=== PATIENT | female | born 1990 | race Caucasian/White ===

== ENCOUNTER 2023-04-26 00:18 | Day surgery (SDC) | payer OTHER, SELFPAY ==
[2023-04-22 10:47] VITALS: BMI 41.2
--- NOTE | 2023-04-22 10:53 | PC.NURSE ---
Report to the Outpatient Waiting Room, entrance under the green pavilion located off [facility], at time 0600 on date 04/26/23. Planned Procedure Time: 0730. Time changes happen often and if your time is changed the preop area will call you the afternoon before. - You and your visitor will be asked to self-screen and do not enter if you have any COVID symptoms. - A mask is optional within the hospital at this time. Patients may have clear liquids (water, carbonated beverages, clear teas, apple juice) until 3 hours prior to surgery with a maximum of 20 ounces. - No food from midnight until time of surgery Take the following medications with a SIP of water the morning of surgery: WELLBUTRIN DO NOT STOP ANY OF YOUR OTHER PRESCRIPTION MEDICATIONS PRIOR TO SURGERY ?EXCEPT THE FOLLOWING Medications to discontinue per physician: N/A Date to take last dose: N/A Please no make-up, nail kinyarwanda, hairspray, perfume, deodorant, or body powder the day of surgery. No jewelry (including any body piercings) or valuables the day of surgery, leave them at home. Please take a shower or bath the night before, or the morning of, surgery with an antibacterial soap. Wear comfortable, loose fitting clothing. - Jewelry must be removed prior to entering the operating room. Rings and piercings that are not removed may be cut off. - The hospital will not accept responsibility for valuables. - Please leave all valuables, including medications, at home the day of surgery. If you are going home after surgery, a licensed city driver must drive you home. - NO public transportation without another adult if you receive anesthesia. - We recommend that an adult stay with you for 24 hours following discharge. - We also recommend that you do not drive, make important decision, drink alcoholic beverages, or take any drugs that were not prescribed by your health care provider for at least 24 hours after your discharge time. Follow any additional instructions given to you from your surgeon. If you or anyone in your household have experienced Covid symptoms in the past week, please notify your surgeon or the nurse liaison at the phone number below for possible testing. Telephone instructions given to PT - GOSIA BUSTOS and asked if any additional questions and then verbalized understanding. Patient advised to call surgeon office or pre surgery nurse liaison [phone] if any additional questions.
[2023-04-26] VITALS (11 sets, daily range): BP systolic 76–120; BP diastolic 47–81; PULSE 57–91; RESP 10–16; TEMP 36.4–37.1; O2SAT 91–100
[2023-04-26] MEDS: LACTATED RINGERS 1,000 ML 30 ML IV CONT ×2 (06:15→08:45)
--- NOTE | 2023-04-26 06:31 | P.PNAN_ITS ---
Anes - Initial Pre Proc Eval Procedure: Operation Date: 04/26/23 07:30 Proposed Procedures p Diagnostic Laparoscopic Bilateral Salpingectomy - Kim Powers DO Date/Time: 04/26/23 06:31 Surgeon: Kim Powers DO Pre Op Diagnosis: desires surgical sterility Patient Data Age: 32 Gender: F Height: 1.63 m Weight: 108.9 kg Allergies Allergy/AdvReac Type Severity Reaction Status Date / Time No Known Allergies Allergy Verified 04/22/23 10:47 Home Medications Medication Instructions Recorded Confirmed Type bupropion HCl 100 mg tablet,12 hr 100 mg PO BID 04/22/23 04/22/23 History sustained-release Patient hx anesthesia problems: none Family hx anesthesia problems: none Results Review: All pre-operative results and documents have been reviewed as part of the pre- operative evaluation. [facility] Past Medical History Medical History (Updated 04/26/23 @ 06:31 by Lalo Chaudhari MD) Morbid obesity Social History Social History Smoking status: Never smoker Alcohol intake: never Substance use: never Substance use type: does not use Living arrangements: with family Spiritual care concerns: No Anes - Eval Final PreProcedure Day of Procedure 04/26/23 06:31 Patient weight: morbidly obese Heart: regular rate and rhythm Lungs: clear to auscultation Airway: Mallampati scale class III and special considerations poor opening Neurological: alert and oriented Last oral intake: >/= 8 hours ASA classification: III Emergent: no Anesthetic plan: proceed Anesthesia type and monitoring: general ETT and standard monitoring Results Review: All pre-operative results and documents have been reviewed as part of the pre- operative evaluation. Informed Consent: The patient's anesthetic plan and its attendant risks and benefits were discussed with the patient/family/POA. Questions were solicited and answers provided to the satisfaction of the patient/family/POA.
[2023-04-26] MEDS: GABAPENTIN 300 MG CAPSULE PO (06:45)
[2023-04-26] MEDS: ACETAMINOPHEN 500 MG TABLET 1000 MG PO (06:45)
--- NOTE | 2023-04-26 07:21 | WPDHPUPDATE1 ---
History and Physical Update Update Date/Time: 04/26/23 07:21 History and Physical has been reviewed, including an updated exam of the patient. There are NO changes in the patient's condition. Risks, benefits, and alternatives have been discussed and questions answered. Patient agrees to proceed with procedure.
--- NOTE | 2023-04-26 07:21 | PM.IMHP ---
H&P: HPI History of Present Illness Date/Time: 04/26/23 07:21 Chief Complaint: I'm here for my tubal Narrative: Leonardo presents desiring permanent sterilization. Review of Systems Review of Systems: All systems reviewed & are unremarkable except as noted in HPI and below PMFSH Past Medical History Medical History (Updated 04/26/23 @ 07:22 by Kim Powers DO) Morbid obesity Social History Social History Smoking status: Never smoker Alcohol intake: never Substance use: never Substance use type: does not use Living arrangements: with family Spiritual care concerns: No Meds Home Medications and Allergies Home Medications Medication Instructions Recorded Confirmed Type bupropion HCl 100 mg tablet,12 hr 100 mg PO BID 04/22/23 04/22/23 History sustained-release Allergies Allergy/AdvReac Type Severity Reaction Status Date / Time No Known Allergies Allergy Verified 04/22/23 10:47 Exam Const: General: comfortable and no acute distress Eyes: General: appearance normal, both eyes and all related structures Resp: Effort & Inspection: normal respiratory effort Auscultation: clear to auscultation bilaterally Cardio: Rate: regular rate Rhythm: regular rhythm GI: GI Palp: Yes Soft to palpation Auscultation: normal bowel sounds Skin: General skin exam: normal color and no rashes or lesions noted Psych: Mental Status: mental status grossly normal Assessment and Plan Assessment and plan (1) Sterilization: Code(s): Z30.2 - Encounter for sterilization Status: Acute Plan Diagnostic laparoscopy, bilateral salpingectomy
[2023-04-26] MEDS: BUPivacaine HCL 0.25% PF 30 ML VIAL INFILTRATE (08:00)
--- NOTE | 2023-04-26 08:15 | W.PM.PROC2 ---
Procedure Note - Detailed Date of Procedure 04/26/23 Pre-op Diagnosis desires surgical sterility Post-op Diagnosis Same Procedure Performed Diagnostic laparoscopy, bilateral salpingectomy Surgeon Kim Powers DO Sueding Machine Tender Johnna Anesthesia General Indications Desires permanent sterilization Findings Normal vulva and vaginal canal. Medium cervix with small amount of old menstrual blood. uterus sounded to 7 cm. Internally, the liver, gallbladder, stomach and bowels were unremarkable. The ovaries appeared multi-cystic bilaterally. The posterior cul-de-sac, bladder flap and ovarian fossa were clean, no evidence of endometriosis. The uterus and tubes were unremarkable. Description of Procedure Patient was taken to the operating room where she was placed under general anesthesia. She was prepped and draped in the normal sterile fashion in a dorsal lithotomy position. No preoperative antibiotics were indicated. A time-out was performed. A speculum was placed in the vagina and the cervix was visualized. Posterior lip of the cervix was grasped with a long Allis clamp. The uterus was sounded to 7 cm. The cervix was sequentially dilated to accommodate a disposable uterine manipulator. The manipulator was placed, the Allis and speculum were removed. Gloves were changed and attention was then turned to the abdomen. The skin above the umbilicus was grasped with 2 penetrating towel clamps and the area was injected with local. A Veress needle was introduced and the saline water drop test was performed. CO2 insufflation was started. The insufflation pressure was too high therefore an additional attempt was made. This was again unsuccessful and we switched to a long Veress needle as I could not feel the peritoneum. An attempt with a long Veress needle was unsuccessful so I opted for direct entry. Using a Optiview trocar, direct entry was performed and successful access to the peritoneal cavity with a long 5 mm trocar was obtained. CO2 gas was started. Survey of the abdomen revealed no evidence of bowel or vascular injury just some preperitoneal air. Additional trocar sites were identified in the right and left lower quadrant. The skin was injected and incised. 5 mm trocars were introduced under direct visualization. The patient was then placed in steep Trendelenburg position. The pelvic anatomy was as described above. The right tube was elevated and was cauterized and transected off using LigaSure device. The specimen was passed off. The procedure was repeated in identical fashion on the left-hand side. Once the specimen was passed off the surgical pedicles were reinspected and found to be hemostatic. The instruments and trocars were removed and the gas was allowed to escape from the abdomen. The abdominal incisions were closed with subcuticular 4-0 Monocryl and covered with skin glue. The uterine manipulator was removed. Patient was taken to the recovery room in stable condition. All instrument and sponge counts were correct at the conclusion of the procedure. Estimated Blood Loss 5 IV Fluids 1,000 Urine Output 10 Drains No Packing No Pathology Yes Complications No immediate complications Condition Stable Disposition PACU
[2023-04-26] MEDS: HYDROmorphone HCL INJ (*CRX) 1 MG/ML SYR 0.25 MG IV PUSH ×6 (08:41→09:13)
--- NOTE | 2023-04-26 09:05 | SUR.PHASEI ---
0905: Simple mask removed.
[2023-04-26] MEDS: oxyCODONE HCL (*CRX) 5 MG TAB IR PO (10:05)
== END 2023-04-26 10:49 | disposition home or self-care (01) ==
PROVIDERS: Visit Provider Obstetrics & Gynecology Gynecologic Oncology
PROC: (CPT 49320; principal; 2023-04-26 07:30)
DX: Z30.2 Encounter for sterilization (principal); N83.8 Other noninflammatory disorders of ovary, fallopian tube and broad ligament; E66.01 Morbid (severe) obesity due to excess calories; Z68.41 Body mass index [BMI] 40.0-44.9, adult
CPT/HCPCS: 58661; 88302; A9270; J1100; J1170; J1596; J2250; J2371; J2405; J2704; J3010; J7030; J7120